=== PATIENT | male | born 1990 | race Hispanic/Latino ===

== ENCOUNTER 2019-12-03 09:20 | Emergency (ER) | payer OTHER ==
[~2019-12-03] VITALS: Ht 165.1 cm; Wt 93.3 kg
[2019-12-03] MEDS ORDERED: OFLOXACIN0.3 % OS (09:45)
[2019-12-03 10:01] VITALS: BP 132/83
== END 2019-12-03 10:01 | disposition home or self-care (01) | DRG 125 ==
LOC: ED 09:20
DX: H53.142 Visual discomfort, left eye (principal)